=== PATIENT | female | born 1955 | race Caucasian/White ===

== ENCOUNTER 2020-08-01 11:39 | Emergency (ER) | payer MEDICARE ==
[~2020-08-01] VITALS: Ht 177.8 cm; Wt 74.8 kg
[2020-08-01] MEDS ORDERED: SERTRALINE HCL100 MG PO (11:59)
[2020-08-01] MEDS ORDERED: LISINOPRIL10 MG PO (11:59)
[2020-08-01] MEDS ORDERED: DESYREL150 MG PO (11:59)
[2020-08-01] MEDS ORDERED: IBUPROFEN 800800 M1 PO (13:49)
[2020-08-01] MEDS ORDERED: NORCO 5-325 TA1 EAC2 PO (13:49)
[2020-08-01 14:21] VITALS: BP 123/93
== END 2020-08-01 14:22 | disposition home or self-care (01) ==
LOC: M.ERS 11:39
DX: S52.592A Other fractures of lower end of left radius, initial encounter for closed fracture (principal); I10 Essential (primary) hypertension; W18.39XA Other fall on same level, initial encounter; Y93.89 Activity, other specified; Y92.89 Other specified places as the place of occurrence of the external cause; Y99.8 Other external cause status

== ENCOUNTER 2021-01-20 13:24 | Emergency (ER) | payer MEDICARE ==
[~2021-01-20] VITALS: Ht 165.1 cm; Wt 72.6 kg
[~2021-01-20 13:24] MED LIST: DESYREL150 MG PO; IBUPROFEN 800800 M1 PO; LISINOPRIL10 MG PO; NORCO 5-325 TA1 EAC2 PO; SERTRALINE HCL100 MG PO
[2021-01-20] MEDS ORDERED: HYDROCODON-ACE1 EAC7 PO (15:04)
[2021-01-20 15:34] VITALS: BP 164/78
== END 2021-01-20 15:35 | disposition home or self-care (01) ==
LOC: M.ERS 13:24
DX: S52.592A Other fractures of lower end of left radius, initial encounter for closed fracture (principal); I10 Essential (primary) hypertension; W01.0XXA Fall on same level from slipping, tripping and stumbling without subsequent striking against object, initial encounter; Y93.89 Activity, other specified; Y92.89 Other specified places as the place of occurrence of the external cause; Y99.8 Other external cause status